=== PATIENT | male | born 1990 ===

== ENCOUNTER 2017-01-04 21:36 | Emergency (ER) | payer MEDICAID ==
[2017-01-04 21:40] VITALS: BMI 27.1
[2017-01-04 21:42] VITALS: BP 146/77; PULSE 87; RESP 16; TEMP 97.9; O2SAT 98
[2017-01-04] MEDS ORDERED: Sodium Chloride 0.9% 1,000 ML IV STA (22:05)
--- NOTE | 2017-01-04 22:07 | ED PDOC ---
HPI: Abdomen Time Seen by Provider: 01/04/17 22:01 Chief Complaint (Nursing): Abdominal Pain Chief Complaint (Provider): ABDOMINAL PAIN History Per: Patient (26 Y/O MALE HERE WITH COMPLAINT OF LOWER BACK PAIN IN AM THAT PROGRESSED TO HEMATURIA AND PAIN IN SCROTAL REGION. STATES URINE WAS DARK 1 HOUR PRIOR. DENIES ANY VOMITING/DIARRHEA/FEVERS/CHILLS. DENIES ANY ABDOMINAL SURGERIES. DENIES ANY H/O KIDNEY STONE.) Past Medical History Reviewed: Historical Data, Nursing Documentation, Vital Signs Vital Signs: Last Vital Signs Temp 97.9 F 01/04/17 21:40 Pulse 87 01/04/17 21:40 Resp 16 01/04/17 21:40 BP 146/77 01/04/17 21:40 Pulse Ox 98 01/04/17 22:07 - Home Medications Home Medications: Ambulatory Orders Medication Instructions Recorded Ciprofloxacin HCl [Cipro] 500 mg PO BID #14 tablet 01/04/17 Naproxen [Naprosyn Tab] 375 mg PO Q8 PRN #21 tab 01/04/17 Tamsulosin [Flomax] 0.4 mg PO DAILY #10 cap 01/04/17 - Allergies Allergies/Adverse Reactions: Allergies Allergy/AdvReac Type Severity Reaction Status Date / Time No Known Allergies Allergy Verified 01/04/17 21:40 Review of Systems ROS Statement: Except As Marked, All Systems Reviewed And Found Negative Gastrointestinal: Positive for: Abdominal Pain Musculoskeletal: Positive for: Back Pain Physical Exam - Reviewed Nursing Documentation Reviewed: Yes Vital Signs Reviewed: Yes - Physical Exam Appears: Positive for: Well, Non-toxic, No Acute Distress Head Exam: Positive for: ATRAUMATIC, NORMAL INSPECTION, NORMOCEPHALIC Skin: Positive for: Normal Color, Warm, DRY Eye Exam: Positive for: EOMI, Normal appearance, PERRL ENT: Positive for: Normal ENT Inspection Neck: Positive for: Normal, Painless ROM Cardiovascular/Chest: Positive for: Regular Rate, Rhythm Respiratory: Positive for: CNT, Normal Breath Sounds Gastrointestinal/Abdominal: Positive for: Normal Exam, Bowel Sounds, Soft Back: Positive for: Normal Inspection Extremity: Positive for: Normal ROM Neurologic/Psych: Positive for: Alert, Oriented - Laboratory Results Result Diagrams: 01/04/17 22:20 01/04/17 22:20 - ECG O2 Sat by Pulse Oximetry: 98 - Progress ED Course And Treament: ns 1 liter wide oipen patient comfortable in ED. IMPRESSION: 1. Nonobstructing left renal calculus in the left renal pelvis measuring 7 x 10 x 10 mm. There is slight left pelvocaliectasis to the UPJ with no mass or calculus and very slight bilateral hydroureters to the UVJs where there is mild thickening of the urinary bladder wall and may be reflection of hypertrophic change of the bladder wall. No ureteral calculus is identified. 2. Otherwise negative CT abdomen/pelvis. Thank you for allowing us to participate in the care of your patient. Dictated and Authenticated by: Addy Donovan MD Disposition - Clinical Impression Clinical Impression: Renal stone - Patient ED Disposition Is Patient to be Admitted: No - Disposition Referrals: Brooks Huerta Jr., MD [Staff Provider] - Disposition: Routine/Home Disposition Time: 23:34 Condition: FAIR Prescriptions: Ciprofloxacin HCl [Cipro] 500 mg PO BID #14 tablet Naproxen [Naprosyn Tab] 375 mg PO Q8 PRN #21 tab PRN Reason: Pain, Moderate (4-7) Tamsulosin [Flomax] 0.4 mg PO DAILY #10 cap Instructions: Kidney Stones (ED) Forms: [facility] ED School/Work Excuse
[2017-01-04 22:30] LABS: BASO % 0.6 % (0.0-2.0); EOS # 0.1 K/uL (0.0-0.7); EOS % 0.9 % (0.0-4.0); HEMATOCRIT 47.2 % (35.0-51.0); LYMPH # 1.8 K/uL (1.0-4.3); LYMPH % 23.3 % (20.0-40.0); MEAN CELL VOLUME 86.9 fl (80.0-94.0); MEAN CORPUSCULAR HEMOGLOBIN 29.2 pg (27.0-31.0); MEAN CORPUSCULAR HGB CONC 33.6 g/dL (33.0-37.0); MEAN PLATELET VOLUME 6.9 fl (7.2-11.7); MONO # 0.6 K/uL (0.0-0.8); NEUT # 5.3 K/uL (1.8-7.0); NEUT % 67.2 % (50.0-75.0); RED CELL DISTRIBUTION WIDTH 12.8 % (11.5-14.5); WHITE BLOOD COUNT 7.8 K/uL (4.8-10.8)
[2017-01-04 22:47] LABS: ALB/GLOB RATIO 1.7 (1.0-2.1); ALKALINE PHOSPHATASE 85 U/L (38-126); ALT/SGPT 42 U/L (21-72); AST/SGOT 29 U/L (17-59); BILIRUBIN,TOTAL 0.7 mg/dl (0.2-1.3); BLOOD UREA NITROGEN 15 mg/dl (9-20); CALCIUM 9.7 mg/dL (8.4-10.2); CARBON DIOXIDE 26 mmol/L (22-30); CHLORIDE 102 mmol/L (98-107); GFR AFRICAN-AMERICAN > 60; GLUCOSE,RANDOM 95 mg/dL (75-110); POTASSIUM 4.1 MMOL/L (3.6-5.0); SODIUM 139 mmol/l (132-148); TOTAL PROTEIN 7.8 G/DL (6.3-8.2)
[2017-01-04 23:09] LABS: RBC URINE 2512 /hpf (0-3); URINE BACTERIA FEW (<OCC); URINE BILIRUBIN NEGATIVE (NEGATIVE); URINE BLOOD LARGE (NEGATIVE); URINE COLOR YELLOW (YELLOW); URINE GLUCOSE (UA) NEG (Normal); URINE KETONE NEGATIVE (NEGATIVE); URINE LEUKOCYTE ESTERASE NEG Leu/uL (Negative); URINE PROTEIN 100 mg/dL (NEGATIVE); URINE UROBILINOGEN 0.2-1.0 mg/dL (0.2-1.0); WBC URINE 16 /hpf (0-5)
--- NOTE | 2017-01-05 09:13 | CT ---
PROCEDURE: CT Abdomen and Pelvis without intravenous contrast HISTORY: R/O KIDNEY STONE COMPARISON: None. TECHNIQUE: Technique. Contrast Dose: Radiation dose: Total exam DLP = 876 mGy-cm. This CT exam was performed using one or more of the following dose reduction techniques: Automated exposure control, adjustment of the mA and/or kV according to patient size, and/or use of iterative reconstruction technique. FINDINGS: LOWER THORAX: Unremarkable. LIVER: Unremarkable. No gross lesion or ductal dilatation. GALLBLADDER AND BILE DUCTS: Unremarkable. PANCREAS: Unremarkable. No gross lesion or ductal dilatation. SPLEEN: Unremarkable. ADRENALS: Unremarkable. No mass. KIDNEYS AND URETERS: 10 millimeter nonobstructive calculus in the left renal pelvis with slight dilatation of the left renal pelvis. No significant hydroureter or caliectasis.. No renal mass VASCULATURE: Unremarkable. No aortic aneurysm. BOWEL: Unremarkable. No obstruction. No gross mural thickening. APPENDIX: Unremarkable. Normal appendix. PERITONEUM: Unremarkable. No free fluid. No free air. LYMPH NODES: Unremarkable. No enlarged lymph nodes. BLADDER: Unremarkable. REPRODUCTIVE: Unremarkable. BONES: No acute fracture. OTHER FINDINGS: None. IMPRESSION: 10 millimeter nonobstructive calculus in the left renal pelvis with slight dilatation of the left renal pelvis. No significant hydroureter or caliectasis..
== END 2017-01-04 23:50 | disposition home or self-care (01) ==
LOC: H.ER 21:36
DX: N20.0 Calculus of kidney (principal); R31.9 Hematuria, unspecified

== ENCOUNTER 2017-02-01 13:15 | Emergency (ER) | payer MEDICAID ==
[2017-02-01 13:16] VITALS: BMI 27.1
[2017-02-01 13:23] VITALS: BP 131/65; PULSE 80; RESP 16; TEMP 98.4; O2SAT 99
[2017-02-01 14:28] LABS: BASO % 0.3 % (0.0-2.0); EOS % 0.1 % (0.0-4.0); HEMATOCRIT 45.7 % (35.0-51.0); LYMPH # 0.7 K/uL (1.0-4.3); LYMPH % 10.4 % (20.0-40.0); MEAN CELL VOLUME 86.2 fl (80.0-94.0); MEAN CORPUSCULAR HEMOGLOBIN 29.4 pg (27.0-31.0); MEAN CORPUSCULAR HGB CONC 34.1 g/dL (33.0-37.0); MEAN PLATELET VOLUME 7.5 fl (7.2-11.7); MONO # 0.7 K/uL (0.0-0.8); MONO % 9.7 % (0.0-10.0); NEUT # 5.7 K/uL (1.8-7.0); NEUT % 79.5 % (50.0-75.0); RED CELL DISTRIBUTION WIDTH 12.5 % (11.5-14.5); WHITE BLOOD COUNT 7.1 K/uL (4.8-10.8)
[2017-02-01] MEDS ORDERED: Sodium Chloride 0.9% 1,000 ML IV STA (14:30)
--- NOTE | 2017-02-01 14:30 | ED PDOC ---
HPI: Abdomen Time Seen by Provider: 02/01/17 14:13 Chief Complaint (Nursing): Abdominal Pain Chief Complaint (Provider): abdominal pain History Per: Patient History/Exam Limitations: no limitations Additional Complaint(s): 26 yo M in ED for charlie f VALENCIA, vomiting x 3 in 3 days and diarrhea >2x daily and body aches, malaise since his traveling abroad. denies cough, rhinorrhea, sore throat or ear pain. Pt also c/o of VALENCIA- not worse VALENCIA of life with photophobia, no blurred vision admits to nausea no weakness in UE/LE Past Medical History Reviewed: Historical Data, Nursing Documentation, Vital Signs Vital Signs: Last Vital Signs Temp 98.4 F 02/01/17 13:19 Pulse 80 02/01/17 13:19 Resp 16 02/01/17 13:19 BP 131/65 02/01/17 13:19 Pulse Ox 99 02/01/17 15:18 - Medical History PMH: No Chronic Diseases - Family History Family History: States: No Known Family Hx - Home Medications Home Medications: Ambulatory Orders Medication Instructions Recorded Ciprofloxacin HCl [Cipro] 500 mg PO BID #14 tablet 01/04/17 Naproxen [Naprosyn Tab] 375 mg PO Q8 PRN #21 tab 01/04/17 Tamsulosin [Flomax] 0.4 mg PO DAILY #10 cap 01/04/17 - Allergies Allergies/Adverse Reactions: Allergies Allergy/AdvReac Type Severity Reaction Status Date / Time No Known Allergies Allergy Verified 02/01/17 13:19 Review of Systems ROS Statement: Except As Marked, All Systems Reviewed And Found Negative Constitutional: Negative for: Fever, Chills Respiratory: Negative for: Cough, Shortness of Breath Gastrointestinal: Negative for: Nausea, Vomiting, Abdominal Pain Neurological: Positive for: Headache, Dizziness Physical Exam - Reviewed Nursing Documentation Reviewed: Yes Vital Signs Reviewed: Yes - Physical Exam Appears: Positive for: Non-toxic, No Acute Distress, Uncomfortable Head Exam: Positive for: ATRAUMATIC, NORMAL INSPECTION, NORMOCEPHALIC Skin: Positive for: Normal Color, Warm, DRY Eye Exam: Positive for: Normal appearance, EOMI, PERRL Cardiovascular/Chest: Positive for: Regular Rate, Rhythm Respiratory: Positive for: CNT, Normal Breath Sounds Gastrointestinal/Abdominal: Positive for: Normal Exam, Bowel Sounds, Soft. Negative for: Tenderness Back: Positive for: Normal Inspection Extremity: Positive for: Normal ROM Neurologic/Psych: Positive for: Alert, Oriented - Laboratory Results Result Diagrams: 02/01/17 14:24 02/01/17 14:24 - ECG O2 Sat by Pulse Oximetry: 99 - Progress ED Course And Treament: pt will get medicaiont for acute VALENCIA-fluids torodol and zofran. cbc ./cmp./flu Medical Decision Making Medical Decision Making: pt improved in ED advised to have f/u with pmd. pt most likely with viral illness, normal labs no elevated wBC and VS well appearing. advised to take fluids and if worsened to return to ED. Disposition - Clinical Impression Clinical Impression: Viral illness - Patient ED Disposition Is Patient to be Admitted: No Counseled Patient/Family Regarding: Need For Followup, Rx Given - Disposition Disposition: Routine/Home Disposition Time: 15:21 Condition: STABLE Instructions: Viral Syndrome (ED) Forms: [facility] ED School/Work Excuse
[2017-02-01 14:43] LABS: ALB/GLOB RATIO 1.5 (1.0-2.1); ALKALINE PHOSPHATASE 88 U/L (38-126); ALT/SGPT 41 U/L (21-72); AST/SGOT 31 U/L (17-59); BILIRUBIN,TOTAL 0.7 mg/dl (0.2-1.3); BLOOD UREA NITROGEN 9 mg/dl (9-20); CALCIUM 9.3 mg/dL (8.4-10.2); CARBON DIOXIDE 24 mmol/L (22-30); CHLORIDE 102 mmol/L (98-107); GFR AFRICAN-AMERICAN > 60; GLUCOSE,RANDOM 93 mg/dL (75-110); POTASSIUM 3.8 MMOL/L (3.6-5.0); SODIUM 137 mmol/l (132-148); TOTAL PROTEIN 7.8 G/DL (6.3-8.2)
[2017-02-01 15:05] LABS: RBC URINE 3 /hpf (0-3); URINE BILIRUBIN NEGATIVE (NEGATIVE); URINE BLOOD SMALL (NEGATIVE); URINE COLOR YELLOW (YELLOW); URINE GLUCOSE (UA) NEG (Normal); URINE KETONE NEGATIVE (NEGATIVE); URINE LEUKOCYTE ESTERASE NEG Leu/uL (Negative); URINE PROTEIN NEGATIVE (NEGATIVE); URINE UROBILINOGEN 0.2-1.0 mg/dL (0.2-1.0); WBC URINE 2 /hpf (0-5)
== END 2017-02-01 15:44 | disposition home or self-care (01) ==
LOC: H.ER 13:15
DX: B34.9 Viral infection, unspecified (principal); R51 Headache; R11.10 Vomiting, unspecified